=== PATIENT | female | born 1950 | race Caucasian/White ===

== ENCOUNTER → 2023-05-12 | Outpatient (CLI) | payer MEDICARE ==
--- NOTE | 2023-05-12 12:30 | USB ---
Reason for Exam: Follow-up at short interval from prior study. Risk Values: Maryam 5 year model risk: 1.1%. NCI Lifetime model risk: 3.3%. Technique: Method: Whole Breast Handheld. Findings: The whole breast of the left breast, the axilla of the left breast and the retroareolar of the left breast were scanned. No solid or cystic masses are identified.. Overall Assessment: Probably benign, BI-RAD 3 Management: Screening Mammogram of both breasts in 6 months. Diagnostic Breast Ultrasound of the left breast in 6 months. A clinical breast exam by your physician is recommended on an annual basis and results should be correlated with mammographic findings. This exam should not preclude additional follow-up of suspicious palpable abnormalities. Results were given to the patient verbally at the time of exam. Electronically signed and approved by: Doroteo Ponce D.O. Radiologis
--- NOTE | 2023-05-12 13:14 | P.PN ---
Subjective Progress Note Date: 05/12/23 abnormal left breast ultrasound Maritza is a 72 year old white female seen in consultation for Dr. Dale orlandoarding radiographic abnormality in the left breast. She had a bilateral screening mammogram done on 9721. This revealed the breast to be heterogeneously dense. There is stable small benign-appearing without masses bilaterally. There was a new 10 mm focal asymmetric density in the middle depth slightly inner aspect left breast on the CC view. She subsequently underwent a left breast ultrasound on . This revealed at the 4 o'clock position left breast is circumscribed round mass measuring 0.4 x 0.2 x 0.3 cm. At the 7 o'clock position a circumscribed oval mass measuring 0.5 x 0.3 cm. Again at the 7 o'clock position a 1 x 0.2 cm circumscribed oval mass. The 3 lesions were felt to most likely represent cyst This was probably benign BIRADS 3 repeat left breast ultrasound in 6 months. Repeat ultrasound of the left breast was done on 05-12-[address] Vides. It was felt to be BIRAD 3 and repeat in 6 months recommended. The patient does not feel any lumps masses or not his of concern in either breast. She is not complaining of any new nipple discharge or skin changes. She has not had any recent trauma or infection in the breast. She does have dry skin around the nipple areolar region. She has had bilateral breast biopsies in the past which were benign, these were done many years ago. caffiene: 1 coke/day nicotine: none chocolate: occasional BCP: stopped 40 years ago used them for 1 year hormones: none Family History: two sisters with breast cancer; thinks in their 50's they have not had genetic testing done if it comes back (+) patient will have genetic testing done father: liver cancer Hormonal History: menarche: 13 M1, age at first : 28, breast fed: yes menopause: 57 Surgical History: D&C bilateral breast biopsies Medical History: diabetic 20 years uses insulin/trulicity high cholesterol Social History: nicotine: none alcohol: none, stopped 10 years ago only was occasional drugs: none - Constitutional Constitutional: Denies chills, Denies fever - EENT Eyes: denies blurred vision, denies pain Ears: deny: decreased hearing, tinnitus Ears, nose, mouth and throat: Denies headache, Denies sore throat - Breasts Breasts: bilateral: as per HPI - Cardiovascular Cardiovascular: Denies chest pain, Denies shortness of breath - Respiratory Respiratory: Denies cough - Gastrointestinal Gastrointestinal: Denies abdominal pain, Denies diarrhea, Denies nausea, Denies vomiting - Genitourinary (Female) Genitourinary: Denies dysuria, Denies hematuria - Menstruation Menstruation: Reports postmenopausal - Musculoskeletal Musculoskeletal: Denies myalgias - Integumentary Integumentary: Denies pruritus, Denies rash - Neurological Neurological: Denies numbness, Denies weakness - Psychiatric Psychiatric: Denies anxiety, Denies depression - Endocrine Comment: diabetes Endocrine: Denies fatigue, Denies weight change - Hematologic/Lymphatic Comment: none - Allergic/Immunologic Allergic/Immunologic: Reports seasonal allergies Medications and Allergies Home Medications Medication Instructions Recorded Confirmed Type Cholecalciferol [Vitamin D3 (25 25 mcg PO DAILY 12/08/22 12/08/22 History Mcg = 1000 Iu)] Escitalopram [Lexapro] 20 mg PO DAILY 12/08/22 12/08/22 History Insulin Glargine,Hum.rec.anlog 20 mg INJ DAILY 12/08/22 12/08/22 History [Lantus Solostar Pen] Meloxicam [Mobic] 15 mg PO DAILY 12/08/22 12/08/22 History Montelukast [Singulair] 10 mg PO DAILY 12/08/22 12/08/22 History Omeprazole [PriLOSEC] 10 mg PO DAILY 12/08/22 12/08/22 History Simvastatin [Zocor] 40 mg PO DAILY 12/08/22 12/08/22 History Allergies Allergy/AdvReac Type Severity Reaction Status Date / Time No Known Allergies Allergy Unverified 12/08/22 12:07 Objective - Constitutional General appearance: Present: cooperative - EENT Eyes: Present: EOMI ENT: Present: hearing grossly normal - Neck Neck: Present: normal ROM - Respiratory Respiratory: bilateral: CTA - Cardiovascular Rhythm: regular Heart sounds: normal: S1, S2 - Gastrointestinal General gastrointestinal: Present: soft - Integumentary Integumentary: Present: normal turgor - Musculoskeletal Musculoskeletal: Present: gait normal - Psychiatric Psychiatric: Present: A&O x's 3, appropriate affect, intact judgment & insight - Additional findings Additional findings: Breast Exam: BRA: 36B Inspection: Bilateral grade 1/2 ptosis Palpation: Right breast: Multi-positional exam well-healed scar from prior surgery, fibrocystic changes, no dominant masses or nodules of concern Right axilla: No adenopathy of concern Left breast: Multi-positional exam well-healed scar from prior surgery, fibrocystic changes, no dominant masses or nodules of concern Left axilla: No adenopathy of concern Assessment and Plan Assessment: Impression: Fibrocystic breast changes Ultrasound of the left breast from most likely benign cystic changes; left breast ultrasound 05-12-23 BIRAD 3 repeat mammogram and ultrasound in 6 months History of diabetes High cholesterol Plan: Repeat left breast ultrasound and bilateral mammogram in 6 months with physician exam at that time There is nothing on examination or radiographically at this time which would warrant interventional biopsy CC: Dr. Hunter
== END | disposition home or self-care (01) ==
LOC: RADUSWWP 11:58
PROVIDERS: ATTEND Surgery
DX: R92.8 Other abnormal and inconclusive findings on diagnostic imaging of breast (principal); E11.9 Type 2 diabetes mellitus without complications; E78.00 Pure hypercholesterolemia, unspecified

== ENCOUNTER → 2023-05-12 | Outpatient (CLI) | payer MEDICARE ==
[2023-05-12 12:53] VITALS: BP 96/67; PULSE 87; RESP 13; TEMP 97.8
== END ==
LOC: WWCWWP 11:56
PROVIDERS: ATTEND Surgery
DX: Z53.9 Procedure and treatment not carried out, unspecified reason (principal)

== ENCOUNTER → 2023-11-13 | Outpatient (CLI) | payer MEDICARE ==
--- NOTE | 2023-11-13 09:42 | MM ---
Reason for Exam: Follow-up at short interval from prior study. Last mammogram was performed 2 year(s) and 0 month(s) ago. Patient History: Menarche at age 13. First Full-Term at age 25. Postmenopausal. Sister had breast cancer at or over age 50. Sister had breast cancer at or over age 50. Risk Values: Maryam 5 year model risk: 7.6%. NCI Lifetime model risk: 20.7%. Prior Study Comparison: 05/24/2021 Bilateral Screening Mammogram, Unknown. 11/05/2021 Bilateral Screening Mammogram, Unknown. 11/09/2022 Left US breast limited LT - 2, Unknown. 05/12/2023 Left US breast LT, Unknown. 05/12/2023 Left US breast LT, [facility]. Tissue Density: The breast tissue is heterogeneously dense. This may lower the sensitivity of mammography. Findings: Analyzed By CAD. Areas of bilateral asymmetric density remain unchanged. Scattered benign rounded punctate calcifications also unchanged. Overall Assessment: Incomplete: need additional imaging evaluation, BI-RAD 0 Management: Diagnostic Breast Ultrasound of the left breast. Electronically signed and approved by: Radha Degroot M.D. Radiologist
--- NOTE | 2023-11-13 10:10 | USB ---
Reason for Exam: Additional evaluation requested from abnormal screening. Patient History: Menarche at age 13. First Full-Term at age 25. Postmenopausal. Sister had breast cancer at or over age 50. Sister had breast cancer at or over age 50. Risk Values: Daisy 5 year model risk: 7.6%. NCI Lifetime model risk: 20.7%. Technique: Method: Whole Breast Handheld. Prior Study Comparison: 05/24/2021 Bilateral Screening Mammogram, Unknown. 11/05/2021 Bilateral Screening Mammogram, Unknown. Findings: The whole breast of the left breast, the axilla of the left breast and the retroareolar of the left breast were scanned. A complete US of all four quadrants of the breast, axilla, and retro-areolar region were reviewed. Redemonstrated scattered small cysts, largest measuring 5 mm at the 7:00 position. Also redemonstrated cyst cluster at the 10:00 position, 4 cm from the nipple. This measures 6 x 6 x 4 mm versus 10 x 7 x 5 mm, previously. Decreasing size compatible with a benign etiology. No other solid or cystic lesion or axillary lymphadenopathy. Overall Assessment: Benign, BI-RAD 2 Management: Screening Mammogram of both breasts in 1 year. SEE NOTE BELOW IN REGARDS TO PATIENT'S INCREASED 5 YEAR DAISY SCORE WELL INCREASED LIFETIME RISK SCORE. A clinical breast exam by your physician is recommended on an annual basis and results should be correlated with mammographic findings. This exam should not preclude additional follow-up of suspicious palpable abnormalities. Results were given to the patient verbally at the time of exam. Note on Daisy scores and lifetime risk: 1. A Daisy score greater than 3% is considered moderate risk. If this is the case, consider specialist referral to assess eligibility for a risk reducing agent. 2. If overall lifetime risk for the development of breast cancer is 20% or higher, the patient may qualify for future screening with alternating mammogram and breast MRI. Electronically signed and approved by: Radha Degroot M.D. Radiologist
== END | disposition home or self-care (01) ==
LOC: RADMAMWWP 08:57
PROVIDERS: ATTEND Surgery
DX: R92.333 Mammographic heterogeneous density, bilateral breasts (principal); Z78.0 Asymptomatic menopausal state; Z80.3 Family history of malignant neoplasm of breast
CPT/HCPCS: 77066; 76641; G0279; 77062

== ENCOUNTER → 2023-11-23 | Outpatient (CLI) | payer MEDICARE ==
--- NOTE | 2023-11-23 12:17 | P.PN ---
Subjective Progress Note Date: 11/23/23 11-13-23 72-year-old white female who is being followed for fibrocystic breast changes. She most recently had a bilateral mammogram and left breast ultrasound in 11-13-2023 which was benign BI-RADS 2. The patient does not feel any lumps masses or not his of concern in either breast. She is not complaining of any new nipple discharge or skin changes. She has not had any recent trauma or infection in the breast. She does have dry skin around the nipple areolar region. She has had bilateral breast biopsies in the past which were benign, these were done many years ago. Maryam Risk: 5-year: 7.6%; we have discussed chemoprophylaxis and she has declined NCI lifetime risk: 20.7%; we have discussed MRI alternating with mammogram and she has declined caffiene: 1 coke/day nicotine: none chocolate: occasional BCP: stopped 40 years ago used them for 1 year hormones: none Family History: two sisters with breast cancer; thinks in their 50's they have not had genetic testing done if it comes back (+) patient will have genetic testing done father: liver cancer Hormonal History: menarche: 13 M1, age at first : 28, breast fed: yes menopause: 57 Surgical History: D&C bilateral breast biopsies Medical History: diabetic 20 years uses insulin/trulicity high cholesterol Social History: nicotine: none alcohol: none, stopped 10 years ago only was occasional drugs: none - Constitutional Constitutional: Denies chills, Denies fever - EENT Eyes: denies blurred vision, denies pain Ears: deny: decreased hearing, tinnitus Ears, nose, mouth and throat: Denies headache, Denies sore throat - Breasts Breasts: bilateral: as per HPI - Cardiovascular Cardiovascular: Denies chest pain, Denies shortness of breath - Respiratory Respiratory: Denies cough - Gastrointestinal Gastrointestinal: Denies abdominal pain, Denies diarrhea, Denies nausea, Denies vomiting - Genitourinary (Female) Genitourinary: Denies dysuria, Denies hematuria - Menstruation Menstruation: Reports postmenopausal - Musculoskeletal Musculoskeletal: Denies myalgias - Integumentary Integumentary: Denies pruritus, Denies rash - Neurological Neurological: Denies numbness, Denies weakness - Psychiatric Psychiatric: Denies anxiety, Denies depression - Endocrine Comment: diabetes Endocrine: Denies fatigue, Denies weight change - Hematologic/Lymphatic Comment: none - Allergic/Immunologic Allergic/Immunologic: Reports seasonal allergies Medications and Allergies Home Medications Medication Instructions Recorded Confirmed Type Cholecalciferol [Vitamin D3 (25 25 mcg PO DAILY 12/08/22 12/08/22 History Mcg = 1000 Iu)] Escitalopram [Lexapro] 20 mg PO DAILY 12/08/22 12/08/22 History Insulin Glargine,Hum.rec.anlog 20 mg INJ DAILY 12/08/22 12/08/22 History [Lantus Solostar Pen] Meloxicam [Mobic] 15 mg PO DAILY 12/08/22 12/08/22 History Montelukast [Singulair] 10 mg PO DAILY 12/08/22 12/08/22 History Omeprazole [PriLOSEC] 10 mg PO DAILY 12/08/22 12/08/22 History Simvastatin [Zocor] 40 mg PO DAILY 12/08/22 12/08/22 History Allergies Allergy/AdvReac Type Severity Reaction Status Date / Time No Known Allergies Allergy Unverified 12/08/22 12:07 Objective - Constitutional General appearance: Present: cooperative - EENT Eyes: Present: EOMI ENT: Present: hearing grossly normal - Neck Neck: Present: normal ROM - Respiratory Respiratory: bilateral: CTA - Cardiovascular Heart sounds: normal: S1, S2 - Integumentary Integumentary: Present: normal turgor - Musculoskeletal Musculoskeletal: Present: gait normal - Psychiatric Psychiatric: Present: A&O x's 3, appropriate affect, intact judgment & insight - Additional findings Additional findings: Breast Exam: BRA: 36B Inspection: Bilateral grade 1/2 ptosis Palpation: Right breast: Multi-positional exam well-healed scar from prior surgery, fibrocystic changes, no dominant masses or nodules of concern Right axilla: No adenopathy of concern Left breast: Multi-positional exam well-healed scar from prior surgery, fibrocystic changes, no dominant masses or nodules of concern Left axilla: No adenopathy of concern Assessment and Plan Assessment: Impression: Fibrocystic breast changes Bilateral mammogram and left breast ultrasound in 11-13-2023 BI-RADS 2, Maryam 5- year risk 7.6%, NCI lifetime risk 20.7% History of diabetes High cholesterol Plan: Bilateral mammogram in 1 year Consider chemoprophylaxis Alternate every 6 months MRI with mammograms secondary to high lifetime risk of breast cancer There is nothing on examination or radiographically at this time which would warrant interventional biopsy CC: Dr. Hunter
[2023-11-23 12:35] VITALS: BP 93/61; PULSE 103; RESP 18; TEMP 97.6
== END ==
LOC: WWCWWP 11:59
PROVIDERS: ATTEND Surgery
DX: N60.12 Diffuse cystic mastopathy of left breast (principal); E11.9 Type 2 diabetes mellitus without complications; E78.00 Pure hypercholesterolemia, unspecified; Z79.4 Long term (current) use of insulin; Z80.3 Family history of malignant neoplasm of breast; Z79.85 Long-term (current) use of injectable non-insulin antidiabetic drugs

== ENCOUNTER → 2024-05-15 | Outpatient (CLI) | payer MEDICARE, OTHER ==
--- NOTE | 2024-05-16 14:34 | BMR ---
EXAM DATE: 05/15/2024 EXAM DESCRIPTION: MRI-Breast Bilat (W/WO Contrast) INDICATION: >20% lifetime risk for malignancy presenting for high risk surveillance. Previous of benign biopsies. Family history of breast cancer COMPARISON: PRIOR MRIs: None available. Correlation to mammograms: 11/13/2023, 07/06/2022, 05/24/2021. Correlation to ultrasound: 05/12/2023. CONTRAST: 7 cc Gadavist IV gadolinium contrast TECHNIQUE: Multiplanar multisequence MR imaging of both breasts was performed with a dedicated breast coil. Images were obtained before and after administration of IV gadolinium, using the standard breast mass protocol. Computer aided detection was utilized for interpretation. FINDINGS: LMP: Postmenopausal General breast composition: There are scattered areas of fibroglandular tissue Background parenchymal enhancement: Moderate RIGHT BREAST: The T2 weighted series shows scattered areas of T2 hyperintensity. Review of the dynamic series shows scattered areas of enhancement which demonstrates T2 hyperintensity and correspond to mammographically stable findings, considered benign. LEFT BREAST: The T2 weighted series shows scattered areas of T2 hyperintensity. Review of the dynamic series shows multiple areas of hyperenhancement associated with T2 hyperintensity, mammographically stable and considered benign, the most pronounced of which is in the upper inner left breast,corresponding to documented intramammary lymph node.. LYMPH NODES: There is no evidence of internal mammary or axillary adenopathy. Miscellaneous findings: Ovoid 2.2 cm mass along the posterior left heart border IMPRESSION: RIGHT BREAST: No MR evidence of malignancy. LEFT BREAST: No MR evidence of malignancy. Ovoid 2.2 cm mass along the posterior left heart border is indeterminate. Correlation with previous cross-sectional imaging is recommended. If none available, CT of the chest to include the upper abdomen is recommended. OVERALL ASSESSMENT -- BI-RADS 2: Benign ANNUAL SCREENING BREAST MRI IN ADDITION TO MAMMOGRAPHY IS RECOMMENDED IN PATIENTS WITH LIFETIME RISK OF BREAST CANCER >20% MTDD
== END | disposition home or self-care (01) ==
LOC: RADMRIMAIN 21:15
PROVIDERS: ATTEND Surgery
DX: Z15.01 Genetic susceptibility to malignant neoplasm of breast (principal); Z80.3 Family history of malignant neoplasm of breast; Z78.0 Asymptomatic menopausal state
CPT/HCPCS: C8908; A9585; 77049